=== PATIENT | female | born 1965 | race Two or more races ===

== ENCOUNTER → 2025-02-03 | Outpatient (REF) | payer OTHER | LOC: M PLALAB 13:32 | PROVIDERS: ATTEND Advanced Practice Midwife | DX: R87.810 Cervical high risk human papillomavirus (HPV) DNA test positive (principal); R87.610 Atypical squamous cells of undetermined significance on cytologic smear of cervix (ASC-US); Z53.9 Procedure and treatment not carried out, unspecified reason ==